=== PATIENT | male | born 1985 | race African-American/Black ===

== ENCOUNTER 2022-08-24 14:06 | Emergency (ER) | payer MEDICAID ==
[~2022-08-24] VITALS: Ht 180.3 cm; Wt 77.0 kg
[2022-08-24] MEDS ORDERED: BACITRACIN ZINC OINT UDPKT TOP NR (15:45)
[2022-08-24] MEDS ORDERED: KETOROLAC 60MG/2ML VIAL IM NR (16:00)
[2022-08-24 16:13] VITALS: BP 149/96
[2022-08-24] MEDS ORDERED: CEPH500C2 PO (16:35)
[2022-08-24] MEDS ORDERED: IBUP-2029 PO (16:35)
[2022-08-24] MEDS ORDERED: BO1 TP (16:35)
== END 2022-08-24 17:11 | disposition home or self-care (01) ==
LOC: ER 14:06
DX: S61.212A Laceration without foreign body of right middle finger without damage to nail, initial encounter (principal); W45.8XXA Other foreign body or object entering through skin, initial encounter; Y93.89 Activity, other specified; Y92.89 Other specified places as the place of occurrence of the external cause; Y99.8 Other external cause status
CPT/HCPCS: 73140; 96372; 99283; J1885

== ENCOUNTER 2022-08-26 14:16 | Emergency (ER) | payer MEDICAID ==
[~2022-08-26] VITALS: Ht 180.3 cm; Wt 77.2 kg
[~2022-08-26 14:16] MED LIST: BO1 TP; CEPH500C2 PO; IBUP-2029 PO
[2022-08-26 14:26] VITALS: BP 148/96
== END 2022-08-26 18:17 | disposition left against medical advice (07) ==
LOC: ER 14:16
DX: Z53.21 Procedure and treatment not carried out due to patient leaving prior to being seen by health care provider (principal)
CPT/HCPCS: 99281

== ENCOUNTER 2023-08-14 15:22 | Emergency (ER) | payer MEDICAID ==
[~2023-08-14] VITALS: Ht 180.3 cm; Wt 82.0 kg
[2023-08-14 15:33] VITALS: BP 141/94; PULSE 88; RESP 16; TEMP 97.6; O2SAT 99
[2023-08-14] MEDS: CYCLOBENZAPRINE 10MG TABLET PO ONE (18:15)
[2023-08-14 18:22] LABS: BASOPHILS % 0.7 % (0.0-2.0); EOSINOPHILS % 11.9 % (0.0-5.0); HEMATOCRIT. 41.2 % (42.0-52.0); HEMOGLOBIN. 13.5 g/dL (14.0-18.0); LYMPHOCYTES % 30.7 % (20.0-50.0); MEAN CORPUSCULAR HEMOGLOBIN 28.3 pg (28.0-32.0); MEAN CORPUSCULAR HGB CONC 32.8 g/dL (31.0-37.0); MEAN CORPUSCULAR VOLUME 86.4 fL (80.0-94.0); MEAN PLATELET VOLUME 7.2 fl (7.4-10.4); MONOCYTES % 5.8 % (2.0-8.0); NEUTROPHILS % 50.9 % (40.0-76.0); PLATELET 402 x1000/uL (130-400); RED BLOOD CELL COUNT 4.77 mill/uL (4.7-6.1); RED CELL DISTRIBUTION WIDTH 14.5 % (11.6-14.6); WHITE BLOOD COUNT 10.8 x1000/uL (4.5-11.0)
[2023-08-14 18:36] LABS: ALANINE AMINOTRANSFERASE 21 IU/L (10-49); ALBUMIN 4.5 g/dL (3.2-4.8); ASPARTATE AMINOTRANSFERASE 21 IU/L (<34); BILIRUBIN TOTAL 0.3 mg/dL (0.1-1.0); CALCIUM 8.6 mg/dL (8.7-10.4); CARBON DIOXIDE 28 mEq/L (21-32); CHLORIDE 104 mEq/L (98-107); CREATININE 0.9 mg/dL (0.6-1.3); GLUCOSE 104 mg/dL (70-105); POTASSIUM 4.3 mEq/L (3.5-5.1); SODIUM 137 mEq/L (136-145); UREA NITROGEN BLOOD 12 mg/dL (9-23)
[2023-08-14 18:47] LABS: ETHANOL BLOOD < 10 mg/dL (<10)
[2023-08-14] MEDS: ACETAMINOPHEN 325MG TABLET PO ONE (20:17)
[2023-08-14] MEDS ORDERED: NAPR220C61 MT (20:21)
[2023-08-14] MEDS ORDERED: CYCL10TA21 MT (20:21)
== END 2023-08-14 18:26 | disposition home or self-care (01) ==
LOC: ER 15:22
DX: S00.83XA Contusion of other part of head, initial encounter (principal); S80.211A Abrasion, right knee, initial encounter; J45.909 Unspecified asthma, uncomplicated; F12.10 Cannabis abuse, uncomplicated; G89.11 Acute pain due to trauma; Z79.899 Other long term (current) drug therapy; Y08.89XA Assault by other specified means, initial encounter; Y93.89 Activity, other specified; Y92.89 Other specified places as the place of occurrence of the external cause; Y99.8 Other external cause status
CPT/HCPCS: 36415; 71045; 73030; 80053; 80320; 85025; 99284; G0480